=== PATIENT | male | born 1995 | race Caucasian/White ===

== ENCOUNTER 2016-07-20 18:11 | Emergency (ER) | payer OTHER ==
[2016-07-20 18:21] VITALS: TEMP 97.9
--- NOTE | 2016-07-20 18:25 | EDPHY ---
H & P Stated Complaint: hx mono r abd pain/also had minimal fall skateboarding today HPI/ROS: CHIEF COMPLAINT: RLQ Abdominal pain. HISTORY OF PRESENT ILLNESS: The patient is a 20-year-old male diagnosed with mono 2 and 1/2 months ago who presents with RLQ abdominal discomfort for the past hour. He describes this as a "burning, like having warm water in my abdomen." It has been constant since onset. It began after he had a mild fall from his skateboard earlier today. He admits associated nausea. No vomiting, fever, diarrhea, urinary symptoms, chest pain, shortness of breath, sore throat. The pain was worsened slightly when he was riding in the car. He denies alleviating factors. He reports that the main symptom from the mono has been upper abdominal pain. REVIEW OF SYSTEMS: A ten point review of systems was performed and is negative with the exception of the items mentioned in the HPI. Source: Patient Exam Limitations: No limitations - Personal History Current Tetanus/Diphtheria Vaccine: Yes - Medical/Surgical History Hx Asthma: No Hx Chronic Respiratory Disease: No Hx Diabetes: No Hx Cardiac Disease: No Hx Renal Disease: No Hx Cirrhosis: No Hx Alcoholism: No Hx HIV/AIDS: No Hx Splenectomy or Spleen Trauma: No Other PMH: Mononucleosis. 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 Social alcohol use. - Physical Exam Exam: General Appearance: Alert. Vital signs reviewed. Blood pressure 144/79, heart rate 106. Eyes: Pupils equal and round, no conjunctival injection, no discharge. Anicteric. ENT, Mouth: Mucous membranes are moist, no oropharyngeal erythema or edema. Neck: No lymphadenopathy, supple. Respiratory: Lungs are clear to auscultation; no wheezes, rales, or rhonchi. Cardiovascular: Tachycardic. Regular rhythm; no murmur, rub, or gallop. Gastrointestinal: Abdomen is soft, no masses or organomegaly, bowel sounds normal. Mildly tender at [place]. No guarding. Skin: Warm and dry, no rashes on exposed skin, normal color. Back: Nontender to palpation over the thoracolumbar spine. No CVAT. Extremities: No lower extremity edema, no calf tenderness or swelling. Neurological: Alert and oriented. Moving all four extremities easily and equally. Psychiatric: Normal affect. Constitutional: Initial Vital Signs Temperature (C) 36.6 C 07/20/16 18:19 Heart Rate 106 H 07/20/16 18:19 Respiratory Rate 20 07/20/16 18:19 Blood Pressure 144/79 H 07/20/16 18:19 O2 Sat (%) 99 07/20/16 18:19 O2 Delivery Mode Room Air Allergies/Adverse Reactions: No Known Allergies Allergy (Unverified 07/20/16 18:19) Home Medications: Medication Instructions Recorded NK [No Known Home Meds] 07/20/16 Medical Decision Making ED Course/Re-evaluation: 20-year-old male with diagnosis of mononucleosis couple months ago. His major symptom throughout that illness has been mild abdominal pain, primarily upper quadrant abdominal pain. Had mild trauma today when he fell from a skateboard. About 1 hour prior to presentation he developed right lower quadrant pain. No fever. He has mild nausea but no vomiting. Location of pain is consistent with appendicitis. CBC and UA ordered. 1950: Reassessed patient. Discussed results of lab work--nl WBC with slight increase in neutrophils, normal UA. His abdominal pain is still subjectively present but is better than before. He has no abdominal tenderness on exam. No vomiting. I doubt that this is appendicitis, but early appendicitis is a possiblity. At this point in time I do not recommend imaging, as his exam is benign. I recommend re-evaluation if his pain worsens or if he develops fever or vomiting. I feel that he can safely return home. Initial tachycardia resolved. Still with mild BP elevation, 128/69. No evidence of UTI. I do not suspect intra-abdominal injury as the result of his minor skateboarding accident earlier. Differential Diagnosis: Abdominal pain including but not limited to appendicitis, splenic rupture, cholecystitis, gastritis and urinary tract infection. - Data Points Laboratory Results: Laboratory Results 07/20/16 18:48 07/20/16 18:48 Departure - Departure Disposition: Home, Routine, Self-Care Clinical Impression: Abdominal pain Qualifiers: Abdominal location: right lower quadrant Qualified Code(s): R10.31 - Right lower quadrant pain Condition: Good Instructions: Abdominal Pain (ED) Additional Instructions: Follow up with [facility] if symptoms are not improving in the next 2-3 days. Return to the emergency department for any serious worsening of condition--fever , worsening abdominal pain, vomiting It is okay to take Tylenol for pain. You can take Tylenol 625 mg every 4 hours. Referrals: [facility],. [Clinic] - As per Instructions Report Scribed for: Aparna Gilliam Report Scribed by: José Triplett Date of Report: 07/20/16 Time of Report: 18:28 Physician Review and Approval Statement: 07/20/16 18:25 Portions of this note were transcribed by the medical secretary teacher. I, Dr. Aparna Gilliam, personally performed the history, physical exam, and medical decision- making; and confirmed the accuracy of the information in the transcribed note.
[2016-07-20 19:03] LABS: % IMMATURE GRANULYOCYTES 0.2 % (0.0-1.1); ABSOLUTE IMMATURE GRANULOCYTES 0.02 10^3/uL (0.00-0.10); ADD DIFF? NO; ADD MORPH? NO; ADD SCAN? NO; ATYPICAL LYMPHOCYTE FLAG 0 (0-99); FRAGMENT RBC FLAG 0 (0-99); HEMATOCRIT 46.9 % (40.0-51.0); HEMOGLOBIN 16.7 g/dL (13.7-17.5); LEFT SHIFT FLG 0 (0-99); LIPEMIA HEMOLYSIS FLAG 90 (0-99); MEAN CELL HEMOGLOBIN 29.6 pg (27.9-34.1); MEAN CELL HEMOGLOBIN CONCENTR. 35.6 g/dL (32.4-36.7); MEAN CELL VOLUME 83.2 fL (81.5-99.8); MEAN PLATELET VOLUME 10.5 fL (8.7-11.7); PLATELET CLUMPS FLAG 0 (0-99); PLATELET COUNT 291 10^3/uL (150-400); RED BLOOD CELL COUNT 5.64 10^6/uL (4.40-6.38); RED CELL DISTRIBUTION WIDTH 11.9 % (11.5-15.2)
[2016-07-20 19:41] LABS: ANION GAP 14 mEq/L (8-16); CALCIUM 10.2 mg/dL (8.5-10.4); CARBON DIOXIDE 26 mEq/l (22-31); CHLORIDE 102 mEq/L (97-110); CREATININE 0.9 mg/dL (0.7-1.3); GLOMERULAR FILTRATION RATE > 60; GLUCOSE 102 mg/dL (70-100); POTASSIUM 3.5 mEq/L (3.5-5.2); SODIUM 142 mEq/L (134-144)
[2016-07-20 19:46] LABS: COLOR YELLOW; LEUKOCYTE ESTERASE,URINE NEGATIVE (NEGATIVE); NITRITE,URINE NEGATIVE (NEGATIVE)
[2016-07-20 20:13] VITALS: BP 128/69; PULSE 83; RESP 16; O2SAT 96
== END 2016-07-20 20:13 | disposition home or self-care (01) ==
DX: R10.31 Right lower quadrant pain (principal); F17.200 Nicotine dependence, unspecified, uncomplicated

== ENCOUNTER → 2016-10-12 | Outpatient (CLI) | payer OTHER | LOC: BMCIMAGING 07:26 | PROVIDERS: ATTEND Nurse Practitioner Adult Health | DX: R10.11 Right upper quadrant pain (principal); B27.90 Infectious mononucleosis, unspecified without complication ==